=== PATIENT | male | born 1975 | race Caucasian/White ===

== ENCOUNTER 2018-03-26 11:11 | Emergency (ER) | END 2018-03-26 14:06 | disposition home or self-care (01) ==

== ENCOUNTER 2018-03-27 05:59 | Emergency (ER) | END 2018-03-27 07:53 | disposition home or self-care (01) ==

== ENCOUNTER 2018-09-10 12:01 | Emergency (ER) | payer MEDICAID ==
[~2018-09-10] VITALS: Wt 65.2 kg
[~2018-09-10 12:01] MED LIST: CEPH-443 PO
[2018-09-10 12:08] VITALS: BP 132/86; PULSE 110; RESP 17
[2018-09-10] MEDS ORDERED: GABA100C14 PO (15:16)
[2018-09-10] MEDS ORDERED: IBUP-1542 PO (15:16)
--- NOTE | 2018-09-10 18:29 | ERD ---
ER Documentation Chief Complaint Chief Complaint NUMBNESS ON LEFT HAND, BILAT EAR THROBBING, ON AND OFF HPI 43-year-old male presents for numbness of the left hand and left foot with bilateral ear throbbing on and off for 1 month. He states that the left hand numbness is associated with tingling sensation. There is any fevers or chills. Patient says he has difficulty hearing due to the the ear throbbing. Denies any chest pain or shortness of breath. He does use alcohol which he states is moderate. No other complaints. ROS All systems reviewed and are negative except as per history of present illness. Medications Home Meds Active Scripts Gabapentin* (Gabapentin*) 100 Mg Capsule, 100 MG PO TID PRN for PAIN, #30 CAP Prov:ZACK MCLEOD DO 09/10/18 Ibuprofen* (Motrin*) 600 Mg Tab, 600 MG PO Q6H PRN for PAIN AND OR ELEVATED TEMP, #30 TAB Prov:ZACK MCLEOD DO 09/10/18 Cephalexin* (Keflex*) 500 Mg Capsule, 500 MG PO QID for 5 Days, CAP Prov:JALIL HENDRIX MD 03/26/18 Allergies Allergies: Coded Allergies: No Known Allergy (Unverified , 03/27/18) PMhx/Soc Medical and Surgical Hx: pt denies Medical Hx, pt denies Surgical Hx Hx Miscellaneous Medical Probl: Yes (EPISTAXIS) Hx Alcohol Use: Yes (beer) Hx Substance Use: No Hx Tobacco Use: No Smoking Status: Never smoker Physical Exam Vitals Vital Signs Date Temp Pulse Resp B/P (MAP) Pulse Ox O2 O2 Flow FiO2 Time Delivery Rate 09/10/18 98.4 110 17 132/86 98 12:08 (101) Physical Exam Const: No acute distress, patient smells of alcohol. Head: Atraumatic Eyes: Normal Conjunctiva ENT: Normal External Ears, Nose and Mouth. Neck: Full range of motion. No meningismus. Resp: Clear to auscultation bilaterally Cardio: Regular rate and rhythm, no murmurs, bilateral radial and dorsalis pedis pulses intact Abd: Soft, non tender, non distended. Normal bowel sounds Skin: No petechiae or rashes Back: No midline or flank tenderness Ext: No cyanosis, or edema, bilateral upper and lower extremity muscle strength 5 out of 5 Neur: Awake and alert, bilateral upper and lower extremity sensation intact Psych: Normal Mood and Affect Results 24 hrs Laboratory Tests Test 09/10/18 13:54 White Blood Count 3.5 10^3/ul Red Blood Count 3.76 10^6/ul Hemoglobin 10.0 g/dl Hematocrit 30.1 % Mean Corpuscular Volume 80.1 fl Mean Corpuscular Hemoglobin 26.6 pg Mean Corpuscular Hemoglobin Concent 33.2 g/dl Red Cell Distribution Width 19.3 % Platelet Count 291 10^3/UL Mean Platelet Volume 9.8 fl Immature Granulocytes % 0.000 % Neutrophils % 52.5 % Lymphocytes % 31.9 % Monocytes % 10.2 % Eosinophils % 1.7 % Basophils % 3.7 % Nucleated Red Blood Cells % 0.0 /100WBC Immature Granulocytes # 0.000 10^3/ul Neutrophils # 1.9 10^3/ul Lymphocytes # 1.1 10^3/ul Monocytes # 0.4 10^3/ul Eosinophils # 0.1 10^3/ul Basophils # 0.1 10^3/ul Nucleated Red Blood Cells # 0.0 10^3/ul Sodium Level 145 mmol/L Potassium Level 4.0 mmol/L Chloride Level 99 mmol/L Carbon Dioxide Level 26 mmol/L Anion Gap 20 Blood Urea Nitrogen 7 mg/dl Creatinine 0.61 mg/dl Est Glomerular Filtrat Rate mL/min > 60 mL/min Glucose Level 93 mg/dl Calcium Level 9.2 mg/dl Total Bilirubin 0.2 mg/dl Direct Bilirubin 0.00 mg/dl Indirect Bilirubin 0.2 mg/dl Aspartate Amino Transf (AST/SGOT) 234 IU/L Alanine Aminotransferase (ALT/SGPT) 95 IU/L Alkaline Phosphatase 140 IU/L Total Protein 8.7 g/dl Albumin 5.0 g/dl Globulin 3.70 g/dl Albumin/Globulin Ratio 1.35 Procedures/MDM Medical Decision Making: Differential diagnosis includes but not limited to neuropathy, muscle strain, ligamentous Patient appeared well on physical exam. Patient was neurovascularly intact. Muscle strength is 5 out of 5 upper and lower extremities CBC showed a low WBC of 3.5, anemia hemoglobin 10, MCV 80 consistent with a macrocytic anemia. CMP showed mildly elevated sodium of 145, otherwise electrolytes normal, kidney function normal, there was elevated liver function tests. The low WBC, hemoglobin and elevated liver function tests consistent with alcohol abuse. AST to ALT ratio above to 2 consistent with alcohol hepatitis however the AST and ALT elevation is mild to moderate. Patient has numbness could be related to neuropathy secondary to alcohol abuse. Patient given prescription for pain medication and gabapentin. Patient advised to follow up with PCP in 1-2 days. Patient advised to return to ED for new or worsening symptoms. Patient stable on discharge from the ED. Disclaimer: Inadvertent spelling and grammatical errors are likely due to EHR/dictation software use and do not reflect on the overall quality of patient care. Also, please note that the electronic time recorded on this note does not necessarily reflect the actual time of the patient encounter. Departure Diagnosis: Primary Impression: Numbness Additional Impression: Abnormal liver function test Condition: Fair Patient Instructions: Paraesthesias Referrals: [facility] YOU HAVE RECEIVED A MEDICAL SCREENING EXAM AND THE RESULTS INDICATE THAT YOU DO NOT HAVE A CONDITION THAT REQUIRES URGENT TREATMENT IN THE EMERGENCY DEPARTMENT. FURTHER EVALUATION AND TREATMENT OF YOUR CONDITION CAN WAIT UNTIL YOU ARE SEEN IN YOUR DOCTORS OFFICE WITHIN THE NEXT 1-2 DAYS. IT IS YOUR RESPONSIBILITY TO MAKE AN APPOINTMENT FOR FOLOW-UP CARE. IF YOU HAVE A PRIMARY DOCTOR --you should call your primary doctor and schedule an appointment IF YOU DO NOT HAVE A PRIMARY DOCTOR YOU CAN CALL OUR PHYSICIAN REFERRAL HOTLINE AT IF YOU CAN NOT AFFORD TO SEE A PHYSICIAN YOU CAN CHOSE FROM THE FOLLOWING [facility] [address] [facility] [place] [facility] [address] [facility] [facility] [address] [facility] [facility] [address] [facility]. [facility] [address] [facility]. [facility]. [address] Additional Instructions: Llame al doctor MAANA y neha sana NOLA PARA DENTRO DE 1-2 ARROYO.Dgale a la secretaria que nosotros le instruimos hacer esta nola.Avise o llame si duckworth condicin se empeora antes de la nola. Regresa aqui si peor o no mejor. ZACK MCLEOD DO Sep 10, 2018 18:29
[2018-09-22] MEDS ORDERED: IBUP-1561 PO (00:46)
[2018-09-22] MEDS ORDERED: ACET325T33 PO (00:46)
== END 2018-09-10 15:47 | disposition home or self-care (01) ==
LOC: FTE 12:01
DX: R20.0 Anesthesia of skin (principal); R94.5 Abnormal results of liver function studies
CPT/HCPCS: 80053; 85025; Z7502; 99283

== ENCOUNTER 2018-10-01 18:29 | Inpatient (IN) | payer MEDICAID ==
[~2018-10-01] VITALS: Ht 154.9 cm; Wt 66.5 kg
[~2018-10-01 18:29] MED LIST changes: +ACET325T33 PO; +GABA100C14 PO; +IBUP-1542 PO; +IBUP-1561 PO
[2018-10-01 18:35] VITALS: Ht 154.9 cm; Wt 66.5 kg
[2018-10-01] MEDS ORDERED: SOD CHLORIDE 0.9% 1,000 ML IV STA (19:42)
--- NOTE | 2018-10-01 19:49 | ERD ---
ER Documentation Chief Complaint Chief Complaint shaky from binge drinking x 4 days HPI During the patient's encounter translation services were utilized Language: [Turkish] Source: [in person] 43-year-old gentleman history of alcohol abuse who has been binge drinking. He describes symptoms that include tremor, shakiness, visual hallucinations. Patient describes a history of alcohol withdrawal in the past. No hematemesis melena or abdominal pain. Symptoms described as moderate to severe ROS All systems reviewed and are negative except as per history of present illness. Medications Home Meds Discontinued Scripts Acetaminophen* (Tylenol*) 325 Mg Tablet, 2 TAB PO Q8 PRN for PAIN AND OR ELEVATED TEMP, #20 TAB Prov:YELITZA MC MD 09/22/18 Ibuprofen* (Motrin*) 400 Mg Tab, 400 MG PO Q8, #15 TAB Prov:YELITZA MC MD 09/22/18 Gabapentin* (Gabapentin*) 100 Mg Capsule, 100 MG PO TID PRN for PAIN, #30 CAP Prov:ZACK MCLEOD DO 09/10/18 Ibuprofen* (Motrin*) 600 Mg Tab, 600 MG PO Q6H PRN for PAIN AND OR ELEVATED TEMP, #30 TAB Prov:ZACK MCLEOD DO 09/10/18 Cephalexin* (Keflex*) 500 Mg Capsule, 500 MG PO QID for 5 Days, CAP Prov:JALIL HENDRIX MD 03/26/18 Allergies Allergies: Coded Allergies: No Known Allergy (Unverified , 10/01/18) PMhx/Soc Hx Miscellaneous Medical Probl: Yes (EPISTAXIS) Hx Alcohol Use: Yes (beer) Hx Substance Use: No Hx Tobacco Use: No FmHx Family History: No diabetes Physical Exam Vitals Vital Signs Date Temp Pulse Resp B/P (MAP) Pulse Ox O2 O2 Flow FiO2 Time Delivery Rate 10/01/18 98.7 78 16 133/93 99 Room Air 20:43 (106) 10/01/18 98.7 87 20 139/101 98 Room Air 19:40 (114) 10/01/18 99.4 117 22 152/89 97 18:35 (110) Physical Exam General: Resting tremor Head: Normocephalic, atraumatic. Eyes: Pupils equally reactive, EOM intact ENT: Moist mucous membranes Neck: Supple, no lymphadenopathy Respiratory: Lungs clear bilaterally, no distress Cardiovascular: Tachy, no murmurs, rubs, or gallops Abdominal: Soft, non-tender, non-distended, no peritoneal signs : Deferred MSK: No edema, no unilateral swelling, 5/5 strength Neurologic: Alert and oriented, moving all extremities, resting tremor Skin: No rash Psych: Normal mood Result Diagram: 10/01/18 1950 10/01/181948 Results 24 hrs Laboratory Tests Test 10/01/18 19:49 10/01/18 19:50 Prothrombin Time 12.3 Sec Prothrombin Time Ratio 1.0 INR International Normalized Ratio 0.90 Activated Partial Thromboplast Time 27.9 Sec Sodium Level 138 mmol/L Potassium Level 4.0 mmol/L Chloride Level 102 mmol/L Carbon Dioxide Level 27 mmol/L Anion Gap 9 Blood Urea Nitrogen 14 mg/dl Creatinine 0.66 mg/dl Est Glomerular Filtrat Rate mL/min > 60 mL/min Glucose Level 100 mg/dl Calcium Level 9.7 mg/dl Total Bilirubin 0.2 mg/dl Direct Bilirubin 0.00 mg/dl Indirect Bilirubin 0.2 mg/dl Aspartate Amino Transf (AST/SGOT) 331 IU/L Alanine Aminotransferase (ALT/SGPT) 145 IU/L Alkaline Phosphatase 162 IU/L Total Protein 8.1 g/dl Albumin 4.8 g/dl Globulin 3.30 g/dl Albumin/Globulin Ratio 1.45 Lipase 477 U/L Ethyl Alcohol Level < 10.0 mg/dl White Blood Count 7.1 10^3/ul Red Blood Count 3.15 10^6/ul Hemoglobin 8.7 g/dl Hematocrit 27.1 % Mean Corpuscular Volume 86.0 fl Mean Corpuscular Hemoglobin 27.6 pg Mean Corpuscular Hemoglobin Concent 32.1 g/dl Red Cell Distribution Width 19.0 % Platelet Count 315 10^3/UL Mean Platelet Volume 9.8 fl Immature Granulocytes % 0.600 % Neutrophils % 64.7 % Lymphocytes % 16.7 % Monocytes % 13.4 % Eosinophils % 3.1 % Basophils % 1.5 % Nucleated Red Blood Cells % 0.3 /100WBC Immature Granulocytes # 0.040 10^3/ul Neutrophils # 4.6 10^3/ul Lymphocytes # 1.2 10^3/ul Monocytes # 1.0 10^3/ul Eosinophils # 0.2 10^3/ul Basophils # 0.1 10^3/ul Nucleated Red Blood Cells # 0.0 10^3/ul Current Medications Medications Dose Sig/Shade Start Time Status Last (Trade) Ordered Route PRN Stop Time Admin Dose Reason Admin Sodium 1,000 ml @ Q1H STAT 10/01/18 DC 10/01/18 Chloride 1,000 mls/hr IV 19:42 19:51 10/01/18 20:41 1,000 ml @ Q2H ONCE 10/01/18 10/01/18 Multivitamins 500 mls/hr IV 20:00 20:47 10 10/01/18 21:59 ml/Thiamine HCl 100 mg/Folic Acid 1 mg/Magnesium Sulfate 2 gm/ Sodium Chloride Lorazepam 2 mg ONCE ONCE 10/01/18 DC 10/01/18 (Ativan) IV 20:00 19:51 10/01/18 20:01 Ondansetron 4 mg ER BRIDGE 10/01/18 HCl (Zofran PRN IV 21:00 Inj) NAUSEA/VOMITI 10/02/18 20:59 NG 650 mg ER BRIDGE 10/01/18 Acetaminophen PRN PO 21:00 (Tylenol .MILD PAIN 10/02/18 20:59 Tab) 1-3 OR TEMP Procedures/MDM EKG, MONITORS, & DIAGNOSTIC IMAGING: EKG: I reviewed and interpreted a 12-lead EKG. Rhythm: Normal sinus rhythm ST Changes: No contiguous ST segment elevations T waves: No contiguous T wave inversions Impression: [No evidence of acute cardiac ischemia] LAB INTERPRETATION: I reviewed the laboratory testing and it shows transaminitis and mild anemia MEDICAL DECISION MAKING: The patient's presentation is very concerning for severe alcohol withdrawal and likely early delirium tremens. With the patient's hallucinations inpatient hospitalization would be appropriate. Patient will benefit from IV fluids, dextrose solutions, multivitamins, Ativan. No signs or symptoms concerning for pancreatitis, upper GI hemorrhage. Laboratory testing indicated. ER COURSE: * Patient was given IV fluids, 2 mg Ativan, banana bag * The patient has not required repeat dosing of benzodiazepine but inpatient hospitalization is certainly appropriate CONSULTATION: [None] DISPOSITION PLAN: Telemetry admission for moderate to severe alcohol withdrawal Accepting care team and consultations: I discussed the current laboratory data, diagnostic imaging and emergency care provided. Admitting team: Dr. Victoria Admitting team indication: Insurance directed Critical Care Note: Total time: 30mins Indication/Organ System Threat: Delirium tremens I spent the above amount of critical care time with the patient, not including billable procedures. This included chart review, consultations, repeat bedside evaluations, and titration of appropriate medications to prevent cardiopulmonary or respiratory collapse. Departure Diagnosis: Primary Impression: Delirium tremens Additional Impressions: Alcohol withdrawal delirium Alcohol abuse Dehydration Condition: YAIMA Barros MD Oct 01, 2018 19:49
[2018-10-01] MEDS ORDERED: LORAZEPAM 2 MG INJ IV ONE (20:00)
[2018-10-01] MEDS ORDERED: MULTIVITAMINS 10 ML, THIAMINE 100 MG, FOLIC ACID 1 MG, MAGNESIUM SULFATE 2 GM in SOD CH... IV ONE (20:00)
[2018-10-01] MEDS ORDERED: ACETAMINOPHEN 325 MG TAB PO PRN (21:00)
[2018-10-01] MEDS ORDERED: ONDANSETRON 4 MG INJ IV PRN (21:00)
[2018-10-02] MEDS ORDERED: LORAZEPAM 2 MG INJ IV PRN (02:30)
[2018-10-02] MEDS ORDERED: ACETAMINOPHEN 325 MG TAB PO PRN (02:30)
[2018-10-02] MEDS ORDERED: HYDROCODONE/APAP (5/325) TAB PO PRN (02:30)
[2018-10-02] MEDS ORDERED: traMADol 50 MG TAB PO PRN (02:30)
[2018-10-02] MEDS ORDERED: NACL 0.9% 3 ML SYG IV SCH (02:30)
--- NOTE | 2018-10-02 03:32 | HP ---
Date/Time of Note Date/Time of Note DATE: 10/02/18 TIME: 03:31 Assessment/Plan VTE Prophylaxis Pharmacological prophylaxis: other Assessment/Plan Hospital Course Objective Physical exam General: Patient is laying in bed and answers questions appropriately Mentation: Patient is alert and oriented 4, Head: Normocephalic atraumatic Eyes: EOMI, pupils reactive to light Neck: Supple, nontender, midline Respiratory: Clear to auscultation bilaterally Cardiovascular: regular rate, no obvious murmurs Gastrointestinal: non-tender to palpation, bowel sounds heard. Neurological: Moves all extremities spontaneously Skin: No new skin lesions Assessment and plan Alcohol withdrawal, near DTs -Patient having severe symptoms of tremor, hallucinations, however stable at this time -We will start patient on Librium, have a backup Ativan IV as needed -IV fluids, banana bag Anemia -Unknown cause, no sources of bleeding, likely patient has anemia of chronic disease, however will follow up with ordering iron panel and reticulocyte count for the a.m. Elevated AST and ALT -Elevation is 3-1 which is consistent with alcoholism, monitor -US pending Elevated lipase -Patient does not have any abdominal complaints, will just monitor Disposition -Admit for alcohol withdrawal symptoms, start Librium taper. Result Diagram: 10/01/18 1950 10/01/181948 Results 24hrs Laboratory Tests Test 10/01/18 19:49 10/01/18 19:50 10/01/18 21:48 Prothrombin Time 12.3 Prothrombin Time Ratio 1.0 INR International Normalized Ratio 0.90 Activated Partial Thromboplast Time 27.9 Sodium Level 138 Potassium Level 4.0 Chloride Level 102 Carbon Dioxide Level 27 Anion Gap 9 Blood Urea Nitrogen 14 Creatinine 0.66 Est Glomerular Filtrat Rate mL/min > 60 Glucose Level 100 Calcium Level 9.7 Total Bilirubin 0.2 Direct Bilirubin 0.00 Indirect Bilirubin 0.2 Aspartate Amino Transf (AST/SGOT) 331 H Alanine Aminotransferase (ALT/SGPT) 145 H Alkaline Phosphatase 162 H Total Protein 8.1 Albumin 4.8 Globulin 3.30 H Albumin/Globulin Ratio 1.45 Lipase 477 H Ethyl Alcohol Level < 10.0 H White Blood Count 7.1 # Red Blood Count 3.15 L Hemoglobin 8.7 L Hematocrit 27.1 L Mean Corpuscular Volume 86.0 Mean Corpuscular Hemoglobin 27.6 L Mean Corpuscular Hemoglobin Concent 32.1 Red Cell Distribution Width 19.0 H Platelet Count 315 Mean Platelet Volume 9.8 Immature Granulocytes % 0.600 H Neutrophils % 64.7 Lymphocytes % 16.7 Monocytes % 13.4 H Eosinophils % 3.1 Basophils % 1.5 Nucleated Red Blood Cells % 0.3 H Immature Granulocytes # 0.040 H Neutrophils # 4.6 Lymphocytes # 1.2 Monocytes # 1.0 H Eosinophils # 0.2 Basophils # 0.1 Nucleated Red Blood Cells # 0.0 Urine Color STRAW Urine Clarity CLEAR Urine pH 7.0 Urine Specific [place] 1.005 Urine Ketones NEGATIVE Urine Nitrite NEGATIVE Urine Bilirubin NEGATIVE Urine Urobilinogen NEGATIVE Urine Leukocyte Esterase NEGATIVE Urine Hemoglobin NEGATIVE Urine Glucose NEGATIVE Urine Total Protein NEGATIVE HPI/ROS Admit Date/Time Admit Date/Time Hx of Present Illness Patient is a male with a past medical history significant for alcohol abuse who presents to [facility] with tremor, shakiness as well as visual hallucinations. Patient states that he has been drinking every day the past week very heavily. Patient also states that when he tries to stop in the past he does get severe withdrawal symptoms. Patient currently appears comfortable with no complaints of pain or issues however patient has been medicated in the ED patient denies chest pain, shortness of breath, abdominal pain, nausea, vomiting, leg pain PMH/Family/Social Past Medical History Medications Current Medications Ondansetron HCl (Zofran Inj) 4 mg ER BRIDGE PRN IV NAUSEA/VOMITING; Start 10/01/18 at 21:00; Stop 10/02/18 at 20:59 Sodium Chloride 1,000 ml @ 70 mls/hr [id number] IV ; Start 10/02/18 at 02:22 IV Flush (NS 3 ml) 3 ml PER PROTOCOL IV ; Start 10/02/18 at 02:30 Lorazepam (Ativan) 1 mg Q6H PRN IV .ANXIETY; Start 10/02/18 at 02:30 Pantoprazole (Protonix Tab) 40 mg DAILY@06 PO ; Start 10/02/18 at 06:00 Multivitamins 10 ml/Thiamine HCl 100 mg/Folic Acid 1 mg/Sodium Chloride 1,011.2 ml @ 125 mls/ hr DAILY@09 IVPB ; Start 10/02/18 at 09:00 Chlordiazepoxide (Librium) 50 mg TID PO ; Start 10/02/18 at 09:00 Tramadol HCl (Ultram) 50 mg Q6H PRN PO MODERATE PAIN LEVEL 4-6; Start 10/02/18 at 02:30 Coded Allergies: No Known Allergy (Unverified , 10/01/18) Social History Smoking Status: Former smoker Exam/Review of Systems Vital Signs Vitals Vital Signs Date Temp Pulse Resp B/P (MAP) Pulse Ox O2 O2 Flow FiO2 Time Delivery Rate 10/02/18 98.7 75 15 144/90 100 Room Air 02:41 (108) KAITLYN HO Oct 02, 2018 03:32
[2018-10-02] MEDS: PANTOPRAZOLE (EC) 40 MG TAB PO SCH (09:08)
[2018-10-02] MEDS: SOD CHLORIDE 0.9% 1,000 ML IV SCH ×2 (09:09→14:57)
[2018-10-02] MEDS: MULTIVITAMINS 10 ML, THIAMINE 100 MG, FOLIC ACID 1 MG in SOD CHLORIDE 0.9% 1,000 ML IVPB SCH (09:42)
[2018-10-02] MEDS: CHLORDIAZEPOXIDE 25 MG CAP PO SCH ×3 (09:42→21:05)
--- NOTE | 2018-10-02 16:09 | PN ---
Date/Time of Note Date/Time of Note DATE: 10/02/18 TIME: 16:06 Assessment/Plan VTE Prophylaxis SCD applied (from Nsg): Yes Pharmacological prophylaxis: other Assessment/Plan Hospital Course S: Patient slightly more alert, still some tremors. Tolerating diet. No acute events overnight. O: VS - see below PE: General: lying in bed, answers questions appropriately Mentation: Patient is alert and oriented 4, Head: Normocephalic atraumatic Eyes: EOMI, pupils reactive to light Neck: Supple, nontender, midline Respiratory: Clear to auscultation bilaterally Cardiovascular: regular rate, no obvious murmurs Gastrointestinal: non-tender to palpation, bowel sounds heard. Neurological: Moves all extremities spontaneously Skin: No new skin lesions Assessment and plan: 43-year-old male who presents with: Alcohol withdrawal- near DTs-Patient having severe symptoms of tremor, hallucinations, however stable at this time -Continue Librium, have a backup Ativan IV as needed -IV fluids, banana bag Anemia-Unknown cause, no sources of bleeding, likely patient has anemia of chronic disease -Monitor, follow up with ordering iron panel and reticulocyte count for the a.m. Elevated AST and ALT-Elevation is 3-1 which is consistent with alcoholism, -monitor LFTs -US pending Elevated lipase-minimally elevated, patient does not have any abdominal complaints. Patient actually has been tolerating diet at this point - monitor, cautiously continue diet, monitor lipase levels in the morning Result Diagram: 10/02/18 0552 10/02/18 0552 Results 24hrs Laboratory Tests Test 10/01/18 19:49 10/01/18 19:50 10/01/18 21:48 10/02/18 05:52 Prothrombin Time 12.3 Prothrombin Time 1.0 Ratio INR International 0.90 Normalized Ratio Activated 27.9 Partial Thromboplast Time Sodium Level 138 140 Potassium Level 4.0 4.6 Chloride Level 102 106 Carbon Dioxide Level 27 27 Anion Gap 9 7 Blood Urea Nitrogen 14 10 Creatinine 0.66 0.58 L Est Glomerular > 60 > 60 Filtrat Rate mL/min Glucose Level 100 93 Calcium Level 9.7 9.4 Total Bilirubin 0.2 0.3 Direct Bilirubin 0.00 0.00 Indirect Bilirubin 0.2 0.3 Aspartate Amino 331 H 248 H Transf (AST/SGOT) Alanine 145 H 133 H Aminotransferase (AL T/SGPT) Alkaline Phosphatase 162 H 150 H Total Protein 8.1 7.6 Albumin 4.8 4.5 Globulin 3.30 H 3.10 Albumin/Globulin 1.45 1.45 Ratio Lipase 477 H Ethyl Alcohol Level < 10.0 H White Blood Count 7.1 # 5.8 Red Blood Count 3.15 L 3.29 L Hemoglobin 8.7 L 9.0 L Hematocrit 27.1 L 28.5 L Mean Corpuscular 86.0 86.6 Volume Mean Corpuscular 27.6 L 27.4 L Hemoglobin Mean Corpuscular 32.1 31.6 L Hemoglobin Concent Red Cell 19.0 H 18.9 H Distribution Width Platelet Count 315 330 Mean Platelet Volume 9.8 10.7 H Immature 0.600 H 0.300 Granulocytes % Neutrophils % 64.7 61.9 Lymphocytes % 16.7 17.7 Monocytes % 13.4 H 14.3 H Eosinophils % 3.1 3.5 Basophils % 1.5 2.3 H Nucleated Red Blood 0.3 H 0.0 Cells % Immature 0.040 H 0.020 Granulocytes # Neutrophils # 4.6 3.6 Lymphocytes # 1.2 1.0 Monocytes # 1.0 H 0.8 Eosinophils # 0.2 0.2 Basophils # 0.1 0.1 Nucleated Red Blood 0.0 0.0 Cells # Urine Color STRAW Urine Clarity CLEAR Urine pH 7.0 Urine Specific 1.005 [place] Urine Ketones NEGATIVE Urine Nitrite NEGATIVE Urine Bilirubin NEGATIVE Urine Urobilinogen NEGATIVE Urine Leukocyte NEGATIVE Esterase Urine Hemoglobin NEGATIVE Urine Glucose NEGATIVE Urine Total Protein NEGATIVE Absolute 0.077 Reticulocyte Count Percent Reticulocyte 2.4 H Count Magnesium Level 2.5 Iron Level 26 L Total Iron Binding 440 H Capacity Percent Iron 6 L Saturation Exam/Review of Systems Exam Vitals Vital Signs Date Temp Pulse Resp B/P (MAP) Pulse Ox O2 O2 Flow FiO2 Time Delivery Rate 10/02/18 88 18 123/93 99 Room Air 14:50 (103) 10/02/18 97.8 12:52 Results Results 24hrs Laboratory Tests Test 10/01/18 19:49 10/01/18 19:50 10/01/18 21:48 10/02/18 05:52 Prothrombin Time 12.3 Prothrombin Time 1.0 Ratio INR International 0.90 Normalized Ratio Activated 27.9 Partial Thromboplast Time Sodium Level 138 140 Potassium Level 4.0 4.6 Chloride Level 102 106 Carbon Dioxide Level 27 27 Anion Gap 9 7 Blood Urea Nitrogen 14 10 Creatinine 0.66 0.58 L Est Glomerular > 60 > 60 Filtrat Rate mL/min Glucose Level 100 93 Calcium Level 9.7 9.4 Total Bilirubin 0.2 0.3 Direct Bilirubin 0.00 0.00 Indirect Bilirubin 0.2 0.3 Aspartate Amino 331 H 248 H Transf (AST/SGOT) Alanine 145 H 133 H Aminotransferase (AL T/SGPT) Alkaline Phosphatase 162 H 150 H Total Protein 8.1 7.6 Albumin 4.8 4.5 Globulin 3.30 H 3.10 Albumin/Globulin 1.45 1.45 Ratio Lipase 477 H Ethyl Alcohol Level < 10.0 H White Blood Count 7.1 # 5.8 Red Blood Count 3.15 L 3.29 L Hemoglobin 8.7 L 9.0 L Hematocrit 27.1 L 28.5 L Mean Corpuscular 86.0 86.6 Volume Mean Corpuscular 27.6 L 27.4 L Hemoglobin Mean Corpuscular 32.1 31.6 L Hemoglobin Concent Red Cell 19.0 H 18.9 H Distribution Width Platelet Count 315 330 Mean Platelet Volume 9.8 10.7 H Immature 0.600 H 0.300 Granulocytes % Neutrophils % 64.7 61.9 Lymphocytes % 16.7 17.7 Monocytes % 13.4 H 14.3 H Eosinophils % 3.1 3.5 Basophils % 1.5 2.3 H Nucleated Red Blood 0.3 H 0.0 Cells % Immature 0.040 H 0.020 Granulocytes # Neutrophils # 4.6 3.6 Lymphocytes # 1.2 1.0 Monocytes # 1.0 H 0.8 Eosinophils # 0.2 0.2 Basophils # 0.1 0.1 Nucleated Red Blood 0.0 0.0 Cells # Urine Color STRAW Urine Clarity CLEAR Urine pH 7.0 Urine Specific 1.005 [place] Urine Ketones NEGATIVE Urine Nitrite NEGATIVE Urine Bilirubin NEGATIVE Urine Urobilinogen NEGATIVE Urine Leukocyte NEGATIVE Esterase Urine Hemoglobin NEGATIVE Urine Glucose NEGATIVE Urine Total Protein NEGATIVE Absolute 0.077 Reticulocyte Count Percent Reticulocyte 2.4 H Count Magnesium Level 2.5 Iron Level 26 L Total Iron Binding 440 H Capacity Percent Iron 6 L Saturation Medications Medication Current Medications Ondansetron HCl (Zofran Inj) 4 mg ER BRIDGE PRN IV NAUSEA/VOMITING; Start 10/01/18 at 21:00; Stop 10/02/18 at 20:59 Sodium Chloride 1,000 ml @ 70 mls/hr [id number] IV Last administered on 10/02/18at 14:57; Admin Dose 70 MLS/HR; Start 10/02/18 at 02:22 IV Flush (NS 3 ml) 3 ml PER PROTOCOL IV ; Start 10/02/18 at 02:30 Lorazepam (Ativan) 1 mg Q6H PRN IV .ANXIETY; Start 10/02/18 at 02:30 Pantoprazole (Protonix Tab) 40 mg DAILY@06 PO Last administered on 10/02/18at 09:08; Admin Dose 40 MG; Start 10/02/18 at 06:00 Multivitamins 10 ml/Thiamine HCl 100 mg/Folic Acid 1 mg/Sodium Chloride 1,011.2 ml @ 125 mls/ hr DAILY@09 IVPB Last administered on 10/02/18at 09:42; Admin Dose 125 MLS/HR; Start 10/02/18 at 09:00 Chlordiazepoxide (Librium) 50 mg TID PO Last administered on 10/02/18at 13:24; Admin Dose 50 MG; Start 10/02/18 at 09:00 Tramadol HCl (Ultram) 50 mg Q6H PRN PO MODERATE PAIN LEVEL 4-6; Start 10/02/18 at 02:30 SHELDON OCONNOR Oct 02, 2018 16:09
[2018-10-02 18:31] VITALS: BP 150/92; PULSE 73; RESP 18
[2018-10-02 19:55] VITALS: BP 150/88; PULSE 68; RESP 17
[2018-10-03 02:14] VITALS: BP 137/88; PULSE 77; RESP 17
[2018-10-03] MEDS: PANTOPRAZOLE (EC) 40 MG TAB PO SCH (06:43)
[2018-10-03] MEDS: SOD CHLORIDE 0.9% 1,000 ML IV SCH (06:58)
[2018-10-03 07:50] VITALS: BP 132/91; PULSE 82; RESP 16
[2018-10-03] MEDS: CHLORDIAZEPOXIDE 25 MG CAP PO SCH ×2 (09:33→13:38)
[2018-10-03] MEDS: MULTIVITAMINS 10 ML, THIAMINE 100 MG, FOLIC ACID 1 MG in SOD CHLORIDE 0.9% 1,000 ML IVPB SCH (09:39)
--- NOTE | 2018-10-03 14:42 | PDOCDIS ---
Discharge Instructions CONDITION [id number] Patient Condition: [id number] Stable HOME CARE INSTRUCTIONS: [id number] Diet Instructions: [id number] Regular ACTIVITY: [id number] Activity Restrictions: [id number] Slowly Increase Activity Rest between Activity Avoid heavy lifting FOLLOW UP/APPOINTMENTS Follow-up Plan Please take your medications as prescribed, see your doctor in the clinic in the next 1 week. SHELDON OCONNOR Oct 03, 2018 14:42
[2018-10-03] MEDS ORDERED: FOLI-49 PO (14:44)
[2018-10-03] MEDS ORDERED: MULT-761 PO (14:44)
[2018-10-03] MEDS ORDERED: THIA50TA7 PO (14:44)
--- NOTE | 2018-10-03 14:50 | DS ---
Date/Time of Note Date/Time of Note DATE: 10/03/18 TIME: 14:47 Discharge Summary Admission/Discharge Info Admit Date/Time Oct 01, 2018 at 20:37 Discharge Date/Time Discharge Diagnosis Alcohol withdrawal- near DTs-resolving now Anemia-anemia of chronic disease Elevated AST and ALT-Elevation is 3-1 which is consistent with alcoholism, trending down now Elevated lipase-minimally elevated on admission, trending down now tolerating diet. Patient Condition: Stable Hx of Present Illness Patient is a male with a past medical history significant for alcohol abuse who presents to [facility] with tremor, shakiness as well as visual hallucinations. Patient states that he has been drinking every day the past week very heavily. Patient also states that when he tries to stop in the past he does get severe withdrawal symptoms. Patient currently appears comfortable with no complaints of pain or issues however patient has been medicated in the ED patient denies chest pain, shortness of breath, abdominal pain, nausea, vomiting, leg pain Hospital Course Patient was admitted to medical surgical unit. He was monitored for signs of alcohol withdrawal. His vital signs remained stable. He had some mild pancreatitis on admission, but his lipase levels are trending down and his abdominal pain symptoms improved so he was started on a regular diet and he tolerated this. Over the course of his hospital stay he was able to ambulate, tolerated p.o. diet. He will be discharged home today in improved condition. See below for full list of discharge medications. This will include a Librium taper. Home Meds Active Scripts Folic Acid* (Folic Acid*) 1 Mg Tablet, 1 MG PO DAILY, #30 TAB 3 Refills Prov:SHELDON OCONNOR S. 10/03/18 Thiamine* (Thiamine*) 50 Mg Tablet, 50 MG PO DAILY, #30 TAB 3 Refills Prov:SHELDON OCONNOR S. 10/03/18 Multivitamin (MULTI VITAMIN DAILY) 1 Each Tablet, 1 TAB PO DAILY, #30 TAB 3 Refills Prov:SHELDON OCONNOR S. 10/03/18 Discontinued Scripts Acetaminophen* (Tylenol*) 325 Mg Tablet, 2 TAB PO Q8 PRN for PAIN AND OR ELEVATED TEMP, #20 TAB Prov:YELITZA MC MD 09/22/18 Ibuprofen* (Motrin*) 400 Mg Tab, 400 MG PO Q8, #15 TAB Prov:YELITZA MC MD 09/22/18 Gabapentin* (Gabapentin*) 100 Mg Capsule, 100 MG PO TID PRN for PAIN, #30 CAP Prov:ZACK MCLEOD DO 09/10/18 Ibuprofen* (Motrin*) 600 Mg Tab, 600 MG PO Q6H PRN for PAIN AND OR ELEVATED TEMP, #30 TAB Prov:ZACK MCLEOD 09/10/18 Cephalexin* (Keflex*) 500 Mg Capsule, 500 MG PO QID for 5 Days, CAP Prov:JALIL HENDRIX MD 03/26/18 Follow-up Plan Please take your medications as prescribed, see your doctor in the clinic in the next 1 week. Primary Care Provider Care Physician No Primary Time spent on discharge: > 30 minutes Pending Labs Laboratory Tests Test 10/03/18 04:25 White Blood Count 6.7 10^3/ul (4.8-10.8) Red Blood Count 3.24 10^6/ul (4.70-6.10) Hemoglobin 8.9 g/dl (14.0-18.0) Hematocrit 28.3 % (42.0-52.0) Mean Corpuscular Volume 87.3 fl (82.0-101.0) Mean Corpuscular Hemoglobin 27.5 pg (29.0-33.0) Mean Corpuscular Hemoglobin Concent 31.4 g/dl (32.0-37.0) Red Cell Distribution Width 18.9 % (11.5-14.5) Platelet Count 355 10^3/UL (140-415) Mean Platelet Volume 10.8 fl (7.4-10.4) Immature Granulocytes % 0.300 % (0.001-0.429) Neutrophils % 59.5 % (39.0-77.0) Lymphocytes % 18.7 % (15.0-51.0) Monocytes % 15.6 % (0.0-11.0) Eosinophils % 4.0 % (0.0-7.0) Basophils % 1.9 % (0.0-2.0) Nucleated Red Blood Cells % 0.0 /100WBC (0.0-0.0) Immature Granulocytes # 0.020 10^3/ul (0.0-0.031) Neutrophils # 4.0 10^3/ul (1.6-7.5) Lymphocytes # 1.3 10^3/ul (0.8-2.9) Monocytes # 1.1 10^3/ul (0.3-0.9) Eosinophils # 0.3 10^3/ul (0.0-0.5) Basophils # 0.1 10^3/ul (0.0-0.1) Nucleated Red Blood Cells # 0.0 10^3/ul (0.0-0.0) Sodium Level 142 mmol/L (135-144) Potassium Level 3.9 mmol/L (3.5-5.1) Chloride Level 103 mmol/L (97-110) Carbon Dioxide Level 28 mmol/L (21-31) Anion Gap 11 (5-13) Blood Urea Nitrogen 10 mg/dl (7-20) Creatinine 0.63 mg/dl (0.61-1.24) Est Glomerular Filtrat Rate mL/min > 60 mL/min (>60) Glucose Level 97 mg/dl (70-220) Calcium Level 9.4 mg/dl (8.4-10.2) Total Bilirubin 0.2 mg/dl (0.2-1.3) Direct Bilirubin 0.00 mg/dl (0.00-0.20) Indirect Bilirubin 0.2 mg/dl (0-1.1) Aspartate Amino Transf (AST/SGOT) 169 IU/L (15-46) Alanine Aminotransferase (ALT/SGPT) 121 IU/L (13-69) Alkaline Phosphatase 125 IU/L (42-121) Total Protein 7.5 g/dl (6.1-8.1) Albumin 4.2 g/dl (3.3-4.9) Globulin 3.30 g/dl (1.3-3.2) Albumin/Globulin Ratio 1.27 Lipase 408 U/L (23-300) SHELDON OCONNOR Oct 03, 2018 14:50
[2018-10-03 15:00] VITALS: BP 130/89; RESP 18
== END 2018-10-03 18:40 | disposition home or self-care (01) | DRG 896 ==
LOC: E/R 18:29 → PP2 20:37 → EDBEDREQ 22:28 → EDBEDREQSVC 10-02 15:53 → EDBEDREQ 10-02 16:06
PROVIDERS: ADMIT Internal Medicine; ATTEND Hospitalist
DX: F10.231 Alcohol dependence with withdrawal delirium (principal); K85.90 Acute pancreatitis without necrosis or infection, unspecified; Y90.0 Blood alcohol level of less than 20 mg/100 ml; D63.8 Anemia in other chronic diseases classified elsewhere
CPT/HCPCS: 36415; 76705; 80053; 80307; 81003; 83540; 83690; 83735; 85025; 85045; 85610; 85730; 93005; 96374; J2060; J3411; J3475; J7030